=== PATIENT | male | born 1945 | race Caucasian/White ===

== ENCOUNTER 2016-09-09 17:05 | Inpatient (IN) | payer MEDICARE, MEDICAID ==
[2016-09-09 17:50] LABS: CHLORIDE,CL 103 mmol/L (98-115); SODIUM,NA 143 mmol/L (136-145)
[2016-09-09] MEDS ORDERED: Albuterol/Ipratropium 3.0-0.5 MG/3 ML Neb Soln NEB SCH (18:00)
--- NOTE | 2016-09-09 18:08 | EDM.PDOC ---
ED HISTORY OF PRESENT ILLNESS - General Chief Complaint: Respiratory Problem Stated Complaint: ?ASPIRATION PNEUMONIA Time Seen by Provider: 09/09/16 17:30 Source of Information: Reports: EMS notes reviewed, long-term records History Limitations: Reports: Altered mental status, Physical impairment - History of Present Illness INITIAL COMMENTS - FREE TEXT/NARRATIVE: 70-year-old male shelter resident history of prior stroke and current feeding tube is brought into the emergency room by EMS for evaluation possible aspiration pneumonia. Patient was started on Levaquin 500 mg daily and Flagyl 250 mg 3 times a day beginning yesterday he had an emesis early in the a.m. this morning been running low-grade fevers approximately 100 he has become more lethargic and weak. He is unable to provide any significant history all his past medical history is reviewed from his nursing notes and chart. His CBC did show elevated white count with a right shift. Timing/Duration: Reports: Day(s): Severity: moderate Location, General: Reports: chest Associated Symptoms (General): Reports: shortness of breath, weakness, other ( emesis this a.m.) Treatments [employer]: Reports: Acetaminophen, Other (see below) (levaquin/flagyl) - Related Data Allergies/ADRs: Allergies Allergy/AdvReac Type Severity Reaction Status Date / Time tizanidine Allergy Agitation Verified 09/09/16 17:39 Home Meds: Home Meds Albuterol/Ipratropium [DuoNeb 3.0-0.5 MG/3 ML] 1 unit INH Q4H PRN 08/06/13 [ History] Aspirin [Francis Chewable Aspirin] 81 mg GTUBE 0800 08/06/13 [History] Baclofen 20 mg GTUBE 0800,1400,2000 08/06/13 [History] Cholecalciferol (Vitamin D3) [Vitamin D3] 1,000 unit GTUBE DAILY@0800 08/06/13 [ History] Glycopyrrolate [Robinul] 2 mg GTUBE 0000,0500,1300,1800 08/06/13 [History] Guar Gum [Benefiber] 4 gm GTUBE 0800,1800 08/06/13 [History] Polyethylene Glycol 3350 [MiraLAX] 17 gm GTUBE Q48H 08/06/13 [History] Sertraline [Zoloft] 100 mg GTUBE DAILY@1800 08/06/13 [History] Albuterol/Ipratropium [DuoNeb 3.0-0.5 MG/3 ML] 1 unit INH 0900,1400,1999 [History] traMADol HCl [Ultram] 50 mg GTUBE TID PRN 11/14/14 [History] Sennosides [Senna-Gen] 8.6 mg GTUBE 0800,1800 11/17/14 [History] Lansoprazole 3mg/Ml 30 mg GTUBE 0800,1800 09/11/15 [History] Gabapentin 250 mg PO 0500,1300,209905/15/16 [History] Nystatin 1 applic TOP 0900,209905/15/16 [History] Nystatin 1 applic TOP QID PRN 05/15/16 [History] guaiFENesin/Codeine Phosphate [Cheratussin AC Syrup] 5 ml PEGTUBE Q4H PRN [History] traMADol HCl [Tramadol HCl] 50 mg PEGTUBE 0600,1800 PRN 05/15/16 [History] Acetaminophen [Mapap] 500 mg GTUBE 0800,199905/16/16 [History] guaiFENesin [Robitussin] 200 mg PEGTUBE Q4H PRN 05/16/16 [History] Hydrocodone/Acetaminophen [Hydrocodon-Acetaminophen 5-325] 1 each PEGTUBE BEDTIME 09/09/16 [History] Levofloxacin [Levaquin] 500 mg PO Q24H 09/09/16 [History] Metoprolol Tartrate 25 mg PEGTUBE 0900,209909/09/16 [History] Ondansetron [IJP: Ondansetron ODT] 4 mg PEGTUBE .EVERY 6 HOURS 09/09/16 [History ] metroNIDAZOLE [Metronidazole] 250 mg PEGTUBE 0800,1400,199909/09/16 [History] Past Medical History Other HEENT History: Dysphagia Cardiovascular History: Reports: Other (see below) Other Cardiovascular History: Hemorrhagic stroke 7 yr ago Respiratory History: Reports: Pneumonia, recurrent Other Respiratory History: intubated and trached for pneumonia 3 yrs ago, H/O MRSA sputum Gastrointestinal History: Reports: Other (see below) Other Gastrointestinal History: PEG TUBE Musculoskeletal History: Reports: Other (see below) Other Musculoskeletal History: chronic muscle spasms, left hemiplegia with contractures. Neurological History: Reports: CVA, Other (see below) Other Neuro History: chronic pain syndrome Psychiatric History: Reports: Depression Oncologic (Cancer) History: Reports: Other (see below) Other Oncologic History: adrenal adenoma Dermatologic History: Reports: Other (see below) Other Dermatologic History: scattered red rashy areas - Past Surgical History GI Surgical History: Reports: Other (see below) Other GI Surgeries/Procedures: PEG TUBE Musculoskeletal Surgical History: Reports: Shoulder surgery, Other (see below) Other Musculoskeletal Surgeries/Procedures:: hardware present to left shoulder Social & Family History - Family History Family Medical History: Noncontributory - Tobacco Use Smoking Status *Q: Unknown Ever Smoked Years of Tobacco use: 19 Packs/Tins Daily: 2 Used Tobacco, but Quit: Yes Month Tobacco Last Used: Unknown Second Hand Smoke Exposure: No - Alcohol Use Days Per Week of Alcohol Use: 0 Number of Drinks Per Day: 5 Total Drinks Per Week: 0 - Recreational Drug Use Recreational Drug Use: No ED ROS GENERAL - Review of Systems Review Of Systems: Unable To Obtain ED EXAM, GENERAL - Physical Exam Exam: See Below Exam Limited By: Physical impairment General Appearance: no apparent distress, lethargic, thin Eye Exam: bilateral eye: EOMI, PERRL Ears: other (cerumen impaction bilateral ears) Nose: normal inspection Throat/Mouth: No airway compromise Head: atraumatic Neck: normal inspection, supple Respiratory/Chest: chest non-tender, decreased breath sounds, crackles. No: respiratory distress, rhonchi, wheezing, retractions Cardiovascular: normal peripheral pulses, regular rate, rhythm Peripheral Pulses: 2+: carotid (L), carotid (R), radial (L), radial (R), dorsalis pedis (L), dorsalis pedis (R) GI/Abdominal: soft, non tender, no distention Back Exam: normal inspection Extremities: normal inspection, no pedal edema, normal capillary refill Neurological: sensory/motor deficit (history of prior stroke) Psychiatric: depressed mood, flat affect Skin Exam: Warm, No rash. No: Diaphoretic Course - Vital Signs Last Recorded V/S: Last Vital Signs Temp 99.6 F 09/09/16 17:29 Pulse 98 09/09/16 17:29 Resp 36 H 09/09/16 17:29 BP 141/79 H 09/09/16 17:29 Pulse Ox 99 09/09/16 17:29 - Orders/Labs/Meds Orders: Active Orders 24 hr Category Date Time Status Admission Status [Patient Status] [ADT] Routine ADT 09/09/16 17:59 Ordered Chest 1V Frontal [CR] Stat Exams 09/09/16 17:27 Taken Levofloxacin/Dextrose 5%-Water [Levaquin in D5W 500 MG/ Med 09/09/16 18:30 Active 100 ML] 500 mg Premix Bag 1 bag IV Q24H Medication Orders Levofloxacin/Dextrose 500 mg/ (Premix) 100 mls @ 100 mls/hr IV Q24H BEN Labs: Laboratory Tests 09/09/16 09/09/16 Range/Units 17:25 17:25 WBC 14.4 H (5.0-10.0) 10^3/uL RBC 4.28 L (4.50-6.00) 10^6/uL Hgb 13.1 (13.0-17.0) g/dL Hct 38.8 L (40.0-52.0) % MCV 90.5 (82.0-92.0) fL MCH 30.6 (27.0-31.0) pg MCHC 33.8 (32.0-36.0) g/dL RDW 14.2 (11.5-14.5) % Plt Count 196 (150-300) 10^3/uL MPV 9.2 (7.4-10.4) fL Neut % (Auto) 86.4 H (50.0-70.0) % Lymph % (Auto) 7.3 L (20.0-40.0) % Mills % (Auto) 5.7 (2.0-8.0) % Eos % (Auto) 0.1 L (1.0-3.0) % Baso % (Auto) 0.5 (0.0-1.0) % Neut # (Auto) 12.4 H (2.5-7.0) 10^3/uL Lymph # (Auto) 1.1 (1.0-4.0) 10^3/uL Mills # (Auto) 0.8 (0.1-0.8) 10^3/uL Eos # (Auto) 0.0 L (0.1-0.3) 10^3/uL Baso # (Auto) 0.1 (0.0-0.1) 10^3/uL Sodium 143 (136-145) mmol/L Potassium 4.3 (3.3-5.3) mmol/L Chloride 103 (98-115) mmol/L Carbon Dioxide 33.6 H (21.0-32.0) mmol/L BUN 23 (6-25) mg/dL Creatinine 0.69 (0.51-1.17) mg/dL Est Cr Clr Drug Dosing 101.04 mL/min Estimated GFR (MDRD) > 60 mL/min Glucose 139 H (70-110) mg/dL Calcium 9.0 (8.7-10.3) mg/dL Meds: Medications Generic Name Dose Route Start Last Admin Trade Name Freq PRN Reason Stop Dose Admin Levofloxacin/Dextrose 500 mg/ 100 mls @ 100 mls/hr 09/09/16 18:30 Premix IV Q24H BEN - Radiology Interpretation Free Text/Narrative:: Portable chest x-ray Findings; bibasal or significant infiltrates are seen. There's questionable right hilar mass. The cardiomediastinal contour is prominent but stable Impression By basilar pneumonia question of a right hilar mass. Departure - Departure Time of Disposition: 18:13 Disposition: Admitted As Inpatient 67 Condition: poor Clinical Impression: Neutrophilic leukocytosis Aspiration pneumonia Qualifiers: Aspiration pneumonia type: due to regurgitated food Laterality: unspecified laterality Lung location: unspecified part of lung Qualified Code(s): J69.0 - Pneumonitis due to inhalation of food and vomit Referrals: Nneka Stanford MD [Primary Care Provider] - Forms: ED Department Discharge - My Orders Last 24 Hours: My Active Orders 09/09/16 17:27 Chest 1V Frontal [CR] Stat 09/09/16 17:59 Admission Status [Patient Status] [ADT] Routine 09/09/16 18:30 Levofloxacin/Dextrose 5%-Water [Levaquin in D5W 500 MG/100 ML] 500 mg Premix Bag 1 bag IV Q24H - Assessment/Plan Last 24 Hours: My Active Orders 09/09/16 17:27 Chest 1V Frontal [CR] Stat 09/09/16 17:59 Admission Status [Patient Status] [ADT] Routine 09/09/16 18:30 Levofloxacin/Dextrose 5%-Water [Levaquin in D5W 500 MG/100 ML] 500 mg Premix Bag 1 bag IV Q24H Assessment:: Leukocytosis neutrophilic Plan: Neck the patient for aspiration pneumonia protocol begin IV antibiotics 500 Levaquin. Kyle provider will set up management and care for this patient on inpatient admission.
[2016-09-09] MEDS ORDERED: Levofloxacin/Dextrose 5%-Water 500 MG in Premix Bag 1 BAG IV SCH (18:30)
--- NOTE | 2016-09-09 19:29 | PCM.HP ---
H&P History of Present Illness - General Date of Service: 09/09/16 Admit Problem/Dx: Admission Diagnosis/Problem Admission Diagnosis/Problem Aspiration pneumonia Source of Information: EMS, Family, custodial records, Old records, Provider , RN - Related Data Allergies/Adverse Reactions: Allergies Allergy/AdvReac Type Severity Reaction Status Date / Time tizanidine Allergy Agitation Verified 09/09/16 17:39 Home Medications: Home Meds Albuterol/Ipratropium [DuoNeb 3.0-0.5 MG/3 ML] 1 unit INH Q4H PRN 08/06/13 [ History] Aspirin [Francis Chewable Aspirin] 81 mg GTUBE 0800 08/06/13 [History] Baclofen 20 mg GTUBE 0800,1400,199908/06/13 [History] Cholecalciferol (Vitamin D3) [Vitamin D3] 1,000 unit GTUBE DAILY@0800 08/06/13 [ History] Glycopyrrolate [Robinul] 2 mg GTUBE 0000,0500,1300,1800 08/06/13 [History] Guar Gum [Benefiber] 4 gm GTUBE 0800,1800 08/06/13 [History] Polyethylene Glycol 3350 [MiraLAX] 17 gm GTUBE Q48H 08/06/13 [History] Sertraline [Zoloft] 100 mg GTUBE DAILY@1800 08/06/13 [History] Albuterol/Ipratropium [DuoNeb 3.0-0.5 MG/3 ML] 1 unit INH 0900,1400,1999 [History] traMADol HCl [Ultram] 50 mg GTUBE TID PRN 11/14/14 [History] Sennosides [Senna-Gen] 8.6 mg GTUBE 0800,1800 11/17/14 [History] Lansoprazole 3mg/Ml 30 mg GTUBE 0800,1800 09/11/15 [History] Gabapentin 250 mg PO 0500,1300,2100 05/15/16 [History] Nystatin 1 applic TOP 0900,2100 05/15/16 [History] Nystatin 1 applic TOP QID PRN 05/15/16 [History] guaiFENesin/Codeine Phosphate [Cheratussin AC Syrup] 5 ml PEGTUBE Q4H PRN [History] traMADol HCl [Tramadol HCl] 50 mg PEGTUBE 0600,1800 PRN 05/15/16 [History] Acetaminophen [Mapap] 500 mg GTUBE 0800,199905/16/16 [History] guaiFENesin [Robitussin] 200 mg PEGTUBE Q4H PRN 05/16/16 [History] Hydrocodone/Acetaminophen [Hydrocodon-Acetaminophen 5-325] 1 each PEGTUBE BEDTIME 09/09/16 [History] Levofloxacin [Levaquin] 500 mg PO Q24H 09/09/16 [History] Metoprolol Tartrate 25 mg PEGTUBE 0900,2100 09/09/16 [History] Ondansetron [IJP: Ondansetron ODT] 4 mg PEGTUBE .EVERY 6 HOURS 09/09/16 [History ] metroNIDAZOLE [Metronidazole] 250 mg PEGTUBE 0800,1400,199909/09/16 [History] Past Medical History Other HEENT History: Dysphagia Cardiovascular History: Reports: Other (see below) Other Cardiovascular History: Hemorrhagic stroke 7 yr ago Respiratory History: Reports: Pneumonia, recurrent Other Respiratory History: intubated and trached for pneumonia 3 yrs ago, H/O MRSA sputum Gastrointestinal History: Reports: Other (see below) Other Gastrointestinal History: PEG TUBE Musculoskeletal History: Reports: Other (see below) Other Musculoskeletal History: chronic muscle spasms, left hemiplegia with contractures. Neurological History: Reports: CVA, Other (see below) Other Neuro History: chronic pain syndrome Psychiatric History: Reports: Depression Oncologic (Cancer) History: Reports: Other (see below) Other Oncologic History: adrenal adenoma Dermatologic History: Reports: Other (see below) Other Dermatologic History: scattered red rashy areas - Past Surgical History GI Surgical History: Reports: Other (see below) Other GI Surgeries/Procedures: PEG TUBE Musculoskeletal Surgical History: Reports: Shoulder surgery, Other (see below) Other Musculoskeletal Surgeries/Procedures:: hardware present to left shoulder Social & Family History - Family History Family Medical History: Noncontributory - Tobacco Use Smoking Status *Q: Unknown Ever Smoked Years of Tobacco use: 19 Packs/Tins Daily: 2 Used Tobacco, but Quit: Yes Month Tobacco Last Used: Unknown Second Hand Smoke Exposure: No - Alcohol Use Days Per Week of Alcohol Use: 0 Number of Drinks Per Day: 5 Total Drinks Per Week: 0 - Recreational Drug Use Recreational Drug Use: No Exam - Vital Signs Vital Signs: Last Vital Signs Temp 99.6 F 09/09/16 17:29 Pulse 98 09/09/16 17:29 Resp 36 H 09/09/16 17:29 BP 141/79 H 09/09/16 17:29 Pulse Ox 99 09/09/16 17:29 Weight: 187 lb 6.4 oz - Patient Data Result Diagrams: 09/09/16 17:25 09/09/16 17:25 *Q Meaningful Use (ADM) - VTE *Q VTE Criteria *Q: - Stroke *Q Stroke Criteria *Q: - AMI *Q AMI Criteria *Q: Orders Last 24hrs: Active Orders 24 hr Category Date Time Status Bedrest [RC] ASDIRECTED Care 09/09/16 19:18 Active Intake and Output [RC] 1400,2200,0600 Care 09/09/16 19:19 Active RT Aerosol Therapy [RC] ASDIRECTED Care 09/09/16 19:16 Active Vital Signs [RC] Q2H Care 09/09/16 19:26 Ordered CBC WITH AUTO DIFF [HEME] AM Lab 09/10/16 05:11 Ordered COMPREHENSIVE METABOLIC PN,CMP [CHEM] AM Lab 09/10/16 05:11 Ordered CULTURE BLOOD [BC] Stat Lab 09/09/16 19:17 Ordered CULTURE BLOOD [BC] Stat Lab 09/09/16 19:17 Ordered Albuterol/Ipratropium [DuoNeb 3.0-0.5 MG/3 ML] Med 09/09/16 18:00 Ordered 3 ml NEB Q6HRRT Clindamycin Phosphate [Cleocin] 600 mg Med 09/09/16 19:30 Ordered Dextrose 5% in Water 50 ml IV Q8H Levofloxacin/Dextrose 5%-Water [Levaquin in D5W 500 MG/ Med 09/09/16 18:30 Active 100 ML] 500 mg Premix Bag 1 bag IV Q24H Sodium Chloride 0.9% [Normal Saline] 1,000 ml Med 09/09/16 19:30 Ordered IV ASDIRECTED Vancomycin 1.5 gm Med 09/09/16 19:13 Ordered Sodium Chloride 0.9% [Normal Saline] 250 ml IV ONETIME Vancomycin Pharmacy to Dose [Pharmacy to Dose - Med 09/09/16 19:15 Ordered Vancomycin] 1 dose .XX ASDIRECTED Blood Culture x2 Reflex Set [OM.PC] Stat Oth 09/09/16 19:17 Ordered Code Status [Resuscitation Status] Routine Resus Stat 09/09/16 19:25 Ordered Medication Orders Albuterol/Ipratropium (Duoneb 3.0-0.5 Mg/3 Ml) 3 ml NEB Q6HRRT BEN Levofloxacin/Dextrose 500 mg/ (Premix) 100 mls @ 100 mls/hr IV Q24H [facility] Vancomycin HCl 1.5 gm/ Sodium (Chloride) 250 mls @ 167 mls/hr IV ONETIME ONE Stop: 09/09/16 20:42 Clindamycin Phosphate 600 mg/ (Dextrose/Water) 54 mls @ 150 mls/hr IV Q8H B[facility] Sodium Chloride (Normal Saline) 1,000 mls @ 100 mls/hr IV ASDIRECTED BEN Vancomycin HCl (Pharmacy To Dose - Vancomycin) 1 dose .XX ASDIRECTED BEN
[2016-09-09] MEDS ORDERED: Sodium Chloride 0.9% 1,000 ML IV SCH (19:30)
[2016-09-09] MEDS ORDERED: Clindamycin Phosphate 600 MG in Dextrose 5% in Water 50 ML IV SCH ×2 (20:00)
[2016-09-09 20:22] VITALS: BP 141/89
[2016-09-09] MEDS ORDERED: Piperacillin/Tazobactam/Dext 3.375 GM in Premix Bag 1 BAG IV ONE (20:32)
[2016-09-09] MEDS ORDERED: Succinylcholine 200 MG/10 ML MDV IV ONE (20:35)
[2016-09-09] MEDS ORDERED: Rocuronium 50 MG/5 ML Vial IVPUSH ONE (20:35)
[2016-09-09] MEDS ORDERED: Etomidate 2 MG/ML 10 ML SDV IVPUSH ONE (20:35)
[2016-09-09] MEDS ORDERED: Midazolam 1 MG/ML 2 ML SDV IVPUSH ONE (20:35)
[2016-09-09 20:43] LABS: BASE EXCESS ARTERIAL 7 mmol/L (-2-3); BICARBONATE,ARTERIAL 31.3 mmol/L (22-26); O2 DELIVERY DEVICE NON REBR MASK; O2 SATURATION ARTERIAL 97 % (95-98); PCO2 ARTERIAL 47 mmHG (35-45); PO2 ARTERIAL 94 mmHG (80-105)
[2016-09-09] MEDS ORDERED: Etomidate 2 MG/ML 10 ML SDV ONE (20:48)
--- NOTE | 2016-09-09 21:42 | PCM.DCSUM1 ---
Discharge Summary - Hospital Course Brief History: This is a 70 year old male who presented to the ER from the senior living after having an emesis the morning of admission. He subsequently developed fevers, tachycardia, and tachypnea. Workup in the ER included WBC 14.4 with left shift, BMP unremarkable except CO2 of 33.6. Chest x-ray report revealed bibasilar pneumonia and question of right hilar mass. The patient was admitted to the medical floor for further treatment and monitoring. Prior to his ER visit, the patient did receive levaquin and metronidazole through his PEG -tube. The patient has a history of aspiration pneumonia and was hospitalized for this with subsequent septic shock in May. - Discharge Data Discharge Date: 09/09/16 Discharge Disposition: DC/Tfer to Acute Hospital 02 Condition: Poor - Patient Summary/Data Complications: Impending respiratory failure with possible septic shock Consults: Hospitalist, Dr. Arambula Labs Pending at D/C: Blood cultures x 2 - Discharge Plan Home Medications: Home Meds Albuterol/Ipratropium [DuoNeb 3.0-0.5 MG/3 ML] 1 unit INH Q4H PRN 08/06/13 [ History] Aspirin [Francis Chewable Aspirin] 81 mg GTUBE 0800 08/06/13 [History] Baclofen 20 mg GTUBE 0800,1400,199908/06/13 [History] Cholecalciferol (Vitamin D3) [Vitamin D3] 1,000 unit GTUBE DAILY@0800 08/06/13 [ History] Glycopyrrolate [Robinul] 2 mg GTUBE 0000,0500,1300,1800 08/06/13 [History] Guar Gum [Benefiber] 4 gm GTUBE 0800,1800 08/06/13 [History] Polyethylene Glycol 3350 [MiraLAX] 17 gm GTUBE Q48H 08/06/13 [History] Sertraline [Zoloft] 100 mg GTUBE DAILY@1800 08/06/13 [History] Albuterol/Ipratropium [DuoNeb 3.0-0.5 MG/3 ML] 1 unit INH 0900,1400,1999 [History] traMADol HCl [Ultram] 50 mg GTUBE TID PRN 11/14/14 [History] Sennosides [Senna-Gen] 8.6 mg GTUBE 0800,1800 11/17/14 [History] Lansoprazole 3mg/Ml 30 mg GTUBE 0800,1800 09/11/15 [History] Gabapentin 250 mg PO 0500,1300,209905/15/16 [History] Nystatin 1 applic TOP 0900,209905/15/16 [History] Nystatin 1 applic TOP QID PRN 05/15/16 [History] guaiFENesin/Codeine Phosphate [Cheratussin AC Syrup] 5 ml PEGTUBE Q4H PRN [History] traMADol HCl [Tramadol HCl] 50 mg PEGTUBE 0600,1800 PRN 05/15/16 [History] Acetaminophen [Mapap] 500 mg GTUBE 0800,199905/16/16 [History] guaiFENesin [Robitussin] 200 mg PEGTUBE Q4H PRN 05/16/16 [History] Hydrocodone/Acetaminophen [Hydrocodon-Acetaminophen 5-325] 1 each PEGTUBE BEDTIME 09/09/16 [History] Levofloxacin [Levaquin] 500 mg PO Q24H 09/09/16 [History] Metoprolol Tartrate 25 mg PEGTUBE 0900,209909/09/16 [History] Ondansetron [IJP: Ondansetron ODT] 4 mg PEGTUBE .EVERY 6 HOURS 09/09/16 [History ] metroNIDAZOLE [Metronidazole] 250 mg PEGTUBE 0800,1400,199909/09/16 [History] Forms: ED Department Discharge Referrals: Nneka Stanford MD [Primary Care Provider] - - Discharge Summary/Plan Comment DC Time >30 min.: Yes [facility]) Discharge Summary/Plan Comment: Date of admission: 09/09/16 Date of discharge: 09/09/16 Admitting diagnosis: Primary: Bibasilar aspiration pneumonia Secondary: History of septic shock, History of aspiration pneumonia, S/P stroke, Dysphagia, G-tube in place, Depression, Chronic pain syndrome, Hyperlipidemia, Esophageal reflux, Osteoarthritis, Muscle spasms, Weakness, Chronic Bronchitis, Chronic hepatitis C, Systolic murmur, AAA, Paroxysmal atrial fibrillation, Constipation, Expressive aphasia Final Diagnosis: Primary: Bibasilar aspiration pneumonia, Acute hypoxic respiratory failure with impending septic shock requiring intubation Secondary: History of septic shock, History of aspiration pneumonia, S/P stroke, Dysphagia, G-tube in place, Depression, Chronic pain syndrome, Hyperlipidemia, Esophageal reflux, Osteoarthritis, Muscle spasms, Weakness, Chronic Bronchitis, Chronic hepatitis C, Systolic murmur, AAA, Paroxysmal atrial fibrillation, Constipation, Expressive aphasia Procedures performed: Endotracheal intubation performed by Maricruz Guzmán CRNA; NG tube placed Hospital Course: The patient had a short hospitalization prior to being transferred to a higher level of care due to complications. Patient's family was called upon admission to the hospital and code status was discussed in detail. Daughter requested patient continue as full code. The patient's respiratory status decompensated quickly after arriving to the floor. He was on a 10 liter non-rebreather mask with saturations of 95% and respirations of 40. His temperature was as high as 102. The patient did not become hypotensive, however he was tachycardic in the 90-100s. The patient was becoming more lethargic and unable to protect his airway. The patient was initiated on IVFs of normal saline at 100 mL/hr. He was given IV levaquin, zosyn, and vancomycin. He was given a DuoNeb. Lactic acid was normal at 1.3. Blood cultures were pending. ABGs revealed pH 7.43, CO2 47, CO3 31.3, Total CO2 33, and O2 94. Call was placed to [facility] for transfer. Discussion was held with Dr. Arambula who advised patient be intubated before transfer. Maricruz Guzmán CRNA performed rapid sequence endotracheal intubation without incident. Oral cavity was suctioned as well as ET tube with copious amounts of mucus returned. NG tube was placed and approximately 500 mL or more of stomach secretions were removed. New medications on discharge: Zosyn 3.375 gm IV x 1 and Vancomycin 1.5 gm IV x 1 given en route New changes to home medications on discharge: None Regular home medications on discharge: -Metoprolol tartrate 12.5 mg via PEG tube BID -DuoNeb TID -Zoloft 200 mg via PEG daily -Hydrocodone-APAP 5/325 mg via PEG daily -Tylenol liquid 15 mL (500 mg) via PEG BID -Aspirin 81 mg via PEG daily -Vitamin D3 1000 units via PEG daily -Nutrisource Fiber 4 gm via PEG BID -Nystatin topical powder BID to affected area -Lansoprazole 10 mL (30 mg) via PEG BID -Senna 1 tab via PEG BID -Baclofen 20 mg via PEG TID -Glycopopyrrolate 1 mg via PED QID -Miralax 17 gm via PEG every other day -Gabapentin 4 mL (200 mg) po TID -Tramadol 50 mg via PEG BID -Nystatin powder QID PRN to affected area -Tramadol 50 mg via PEG TID PRN -Guafenesin 10 mL (200 mg) via PEG every 4 hours PRN -Cheratussin AC 10 mL via PEG every 4 hours PRN -Tylenol 15 mL (500 mg) via PEG QID PRN -Zofran 4 mg via PEG every 6 hours PRN -DuoNeb TID PRN Condition, Treatment, and Final Disposition: The patient was in serious, but stable condition at the time of discharge. He was transferred via ALS ambulance to [facility] to the ICU. Daughter notified and in agreement with the plan of care. - General Info Date of Service: 09/09/16 Subjective Update: Limited ROS due to patient's expressive aphasia.Will open eyes and follow simple commands. Difficult to understand patient. - Patient Data Vitals - Most Recent: Last Vital Signs Temp 100.4 F 09/09/16 20:21 Pulse 100 09/09/16 20:35 Resp 40 H 09/09/16 20:21 BP 141/89 H 09/09/16 20:21 Pulse Ox 98 09/09/16 20:35 Weight - Most Recent: 181 lb 11.2 oz Lab Results - Last 24 hrs: Laboratory Results - last 24 hr 09/09/16 09/09/16 Range/Units 19:50 20:30 ABG pH 7.43 (7.35-7.45) ABG pCO2 47 H (35-45) mmHG ABG pO2 94 (80-105) mmHG ABG HCO3 31.3 H (22-26) mmol/L ABG Total CO2 33 H (23-27) mmol/L ABG O2 Saturation 97 (95-98) % ABG Base Excess 7 H (-2-3) mmol/L O2 Delivery Device Non rebr mask Lactic Acid 1.3 (0.4-2.0) mmol/L Med Orders - Current: Current Medications Albuterol/Ipratropium (Duoneb 3.0-0.5 Mg/3 Ml) 3 ml NEB Q6HRRT [facility] Last Admin: 09/09/16 20:25 Dose: 3 ml Levofloxacin/Dextrose 500 mg/ (Premix) 100 mls @ 100 mls/hr IV Q24H [facility] Last Admin: 09/09/16 20:19 Dose: 100 mls/hr Clindamycin Phosphate 600 mg/ (Dextrose/Water) 54 mls @ 150 mls/hr IV Q8H [facility] Sodium Chloride (Normal Saline) 1,000 mls @ 100 mls/hr IV ASDIRECTED [facility] Last Admin: 09/09/16 19:50 Dose: 100 mls/hr Vancomycin HCl (Pharmacy To Dose - Vancomycin) 1 dose .XX ASDIRECTED [facility] Discontinued Medications Vancomycin HCl 1.5 gm/ Sodium (Chloride) 250 mls @ 167 mls/hr IV ONETIME ONE Stop: 09/09/16 20:42 Piperacillin/Tazobactam/ (Dextrose 3.375 gm/ Premix) 50 mls @ 100 mls/hr IV ONETIME ONE Stop: 09/09/16 21:01 - Exam Quality Assessment: Reports: supplemental oxygen (10 liter nonrebreather) General: Reports: alert, severe distress, lethargic. Denies: oriented, obtunded HEENT: Reports: Pupils equal, Pupils reactive. Denies: Mucous membr. moist/ pink (dry and pale) Neck: Reports: supple, trachea midline. Denies: lymphadenopathy Lungs: Reports: Crackles (coarse crackles throughout lung avelar), Other ( intercostal retractions noted). Denies: Wheezing Cardiovascular: Reports: Regular Rhythm, Tachycardia, Murmurs Abdomen: Reports: bowel sounds present, soft, no tenderness, no distension, other (PEG tube in place) Extremities: Reports: no edema Skin: Reports: warm, dry, other (diaphoretic, warm skin) Neurological: Denies: normal speech Psy/Mental Status: Reports: anxious *Q Meaningful Use (DIS) - VTE *Q VTE Criteria *Q: - Stroke *Q Stroke Criteria *Q: - AMI *Q AMI Criteria *Q:
[2016-09-10] MEDS ORDERED: Midazolam 1 MG/ML 2 ML SDV ONE (02:23)
== END 2016-09-09 21:43 | DRG 871 ==
LOC: KA.ED 17:05 → KA.MS 17:59
PROVIDERS: ADMIT Physician Assistant; ATTEND Nurse Practitioner Family
PROC: 0BH17EZ Insertion of Endotracheal Airway into Trachea, Via Natural or Artificial Opening (ICD-10-PCS; principal; 2016-09-09)
PROC: 0D9670Z Drainage of Stomach with Drainage Device, Via Natural or Artificial Opening (ICD-10-PCS; 2016-09-09)
DX: A41.9 Sepsis, unspecified organism (principal); D72.829 Elevated white blood cell count, unspecified; R65.21 Severe sepsis with septic shock; J69.0 Pneumonitis due to inhalation of food and vomit; Z86.73 Personal history of transient ischemic attack (TIA), and cerebral infarction without residual deficits; J96.01 Acute respiratory failure with hypoxia; I69.991 Dysphagia following unspecified cerebrovascular disease; R13.10 Dysphagia, unspecified; F32.9 Major depressive disorder, single episode, unspecified; G89.4 Chronic pain syndrome; E78.5 Hyperlipidemia, unspecified; K21.9 Gastro-esophageal reflux disease without esophagitis; M19.90 Unspecified osteoarthritis, unspecified site; M62.838 Other muscle spasm; R53.1 Weakness; B18.2 Chronic viral hepatitis C; R01.1 Cardiac murmur, unspecified; I71.4 Abdominal aortic aneurysm, without rupture; I48.91 Unspecified atrial fibrillation; K59.00 Constipation, unspecified; F80.1 Expressive language disorder; Z79.899 Other long term (current) drug therapy
CPT/HCPCS: 31500; 36415; 36600; 71010; 80048; 82803; 83605; 85025; 87040; 99285; J0330; J1956; J2250; J2543; J3370; J7030; J7050; J7060; S0077

== ENCOUNTER 2016-10-01 20:19 | Emergency (ER) | payer MEDICARE, MEDICAID ==
[2016-10-01] MEDS ORDERED: Sodium Chloride 0.9% 5 ML Syringe FLUSH PRN (20:27)
--- NOTE | 2016-10-01 20:39 | EDM.PDOC ---
ED HPI GENERAL MEDICAL PROBLEM - General Chief Complaint: Respiratory Problem Stated Complaint: RESPIRATORY DISTRESS Time Seen by Provider: 10/01/16 20:27 Source of Information: Reports: EMS, EMS Notes Reviewed, [facility]itentiary Records History Limitations: Reports: No Limitations - History of Present Illness INITIAL COMMENTS - FREE TEXT/NARRATIVE: PT PRESENTS VIA EMS FROM NURSING FACILITY WITH C/O WORSENING SOB AND INCREASED RR. DENY FEVER, CP, PEDAL EDEMA. PT HAD SIMILAR EPISODE HERE 3 WEEKS AGO AND REQUIRED INTUBATION AND TRANSFER TO [facility]. Onset: Gradual Duration: Chronic, Getting Worse Associated Symptoms: Reports: Shortness of Breath - Related Data Allergies Allergy/AdvReac Type Severity Reaction Status Date / Time tizanidine Allergy Agitation Verified 10/01/16 20:34 Home Meds: Home Meds Albuterol/Ipratropium [DuoNeb 3.0-0.5 MG/3 ML] 1 unit INH Q4H PRN 08/06/13 [ History] Aspirin [Francis Chewable Aspirin] 81 mg GTUBE 0800 08/06/13 [History] Baclofen 20 mg GTUBE 0800,1400,199908/06/13 [History] Cholecalciferol (Vitamin D3) [Vitamin D3] 1,000 unit GTUBE DAILY@0800 08/06/13 [ History] Glycopyrrolate [Robinul] 2 mg GTUBE 0000,0500,1300,1800 08/06/13 [History] Guar Gum [Benefiber] 4 gm GTUBE 0800,1800 08/06/13 [History] Polyethylene Glycol 3350 [MiraLAX] 17 gm GTUBE Q48H 08/06/13 [History] Sertraline [Zoloft] 100 mg GTUBE DAILY@1800 08/06/13 [History] Albuterol/Ipratropium [DuoNeb 3.0-0.5 MG/3 ML] 1 unit INH 0900,1400,1999 [History] traMADol HCl [Ultram] 50 mg GTUBE TID PRN 11/14/14 [History] Sennosides [Senna-Gen] 8.6 mg GTUBE 0800,1800 11/17/14 [History] Lansoprazole 3mg/Ml 30 mg GTUBE 0800,1800 09/11/15 [History] Gabapentin 250 mg PO 0500,1300,2100 05/15/16 [History] Nystatin 1 applic TOP 0900,2100 05/15/16 [History] Nystatin 1 applic TOP QID PRN 05/15/16 [History] guaiFENesin/Codeine Phosphate [Cheratussin AC Syrup] 5 ml PEGTUBE Q4H PRN [History] traMADol HCl [Tramadol HCl] 50 mg PEGTUBE 0600,1800 PRN 05/15/16 [History] Acetaminophen [Mapap] 500 mg GTUBE 0800,199905/16/16 [History] guaiFENesin [Robitussin] 200 mg PEGTUBE Q4H PRN 05/16/16 [History] Hydrocodone/Acetaminophen [Hydrocodon-Acetaminophen 5-325] 1 each PEGTUBE BEDTIME 09/09/16 [History] Levofloxacin [Levaquin] 500 mg PO Q24H 09/09/16 [History] Metoprolol Tartrate 25 mg PEGTUBE 0900,209909/09/16 [History] Ondansetron [IJP: Ondansetron ODT] 4 mg PEGTUBE .EVERY 6 HOURS 09/09/16 [History ] metroNIDAZOLE [Metronidazole] 250 mg PEGTUBE 0800,1400,199909/09/16 [History] Past Medical History Other HEENT History: Dysphagia Cardiovascular History: Reports: Other (See Below) Other Cardiovascular History: Hemorrhagic stroke 7 yr ago Respiratory History: Reports: Pneumonia, Recurrent Other Respiratory History: intubated and trached for pneumonia 3 yrs ago, H/O MRSA sputum Gastrointestinal History: Reports: Other (See Below) Other Gastrointestinal History: PEG TUBE Musculoskeletal History: Reports: Other (See Below) Other Musculoskeletal History: chronic muscle spasms, left hemiplegia with contractures. Neurological History: Reports: CVA, Other (See Below) Other Neuro History: chronic pain syndrome Psychiatric History: Reports: Depression Oncologic (Cancer) History: Reports: Other (See Below) Other Oncologic History: adrenal adenoma Dermatologic History: Reports: Other (See Below) Other Dermatologic History: scattered red rashy areas - Past Surgical History GI Surgical History: Reports: Other (See Below) Musculoskeletal Surgical History: Reports: Shoulder Surgery, Other (See Below) Social & Family History - Family History Family Medical History: Noncontributory - Tobacco Use Smoking Status *Q: Former Smoker Years of Tobacco use: 19 Packs/Tins Daily: 2 Used Tobacco, but Quit: Yes Month Tobacco Last Used: Unknown Second Hand Smoke Exposure: No - Alcohol Use Days Per Week of Alcohol Use: 0 Number of Drinks Per Day: 5 Total Drinks Per Week: 0 - Recreational Drug Use Recreational Drug Use: No ED ROS GENERAL - Review of Systems Review Of Systems: ROS reveals no pertinent complaints other than HPI. Constitutional: Reports: No Symptoms HEENT: Reports: No Symptoms Respiratory: Reports: Shortness of Breath Cardiovascular: Reports: No Symptoms Endocrine: Reports: No Symptoms GI/Abdominal: Reports: No Symptoms : Reports: No Symptoms Musculoskeletal: Reports: No Symptoms Skin: Reports: No Symptoms Neurological: Reports: No Symptoms Psychiatric: Reports: No Symptoms Hematologic/Lymphatic: Reports: No Symptoms Immunologic: Reports: No Symptoms ED EXAM, GENERAL - Physical Exam Exam: See Below Exam Limited By: No Limitations General Appearance: No Apparent Distress, Lethargic Eye Exam: Bilateral Eye: Normal Inspection Nose: Normal Inspection, No Blood Throat/Mouth: Normal Inspection, Normal Oropharynx, No Airway Compromise Head: Atraumatic, Normocephalic Neck: Normal Inspection Respiratory/Chest: Decreased Breath Sounds, Rales, Other ([place]) GI/Abdominal: Normal Bowel Sounds, Soft, Non-Tender Extremities: Normal Inspection, No Pedal Edema Neurological: Slow to Respond Psychiatric: Flat Affect Skin Exam: Warm, Intact, Normal Color, No Rash, Diaphoretic Lymphatic: No Adenopathy EKG INTERPRETATION EKG Date: 10/01/16 Time: 20:45 Rhythm: NSR Rate (beats/min): 92 [place]: normal P-wave: present QRS: normal ST-T: normal QT: normal Comparison: no change Course - Orders/Labs/Meds Orders: Active Orders 24 hr Category Date Time Status EKG Documentation Completion [RC] ASDIRECTED Care 10/01/16 20:28 Ordered Oxygen Therapy [RC] PRN Care 10/01/16 20:27 Ordered Peripheral IV Care [RC] . DIRECTED Care 10/01/16 20:28 Ordered Pulse Oximetry [RC] CONTINUOUS Care 10/01/16 20:27 Ordered Chest 1V Frontal [CR] Stat Exams 10/01/16 20:27 Ordered ABG [BLOOD GAS ARTERIAL] [BG] Stat Lab 10/01/16 20:28 Ordered CBC WITH AUTO DIFF [HEME] Stat Lab 10/01/16 20:27 Ordered COMPREHENSIVE METABOLIC PN,CMP [CHEM] Stat Lab 10/01/16 20:27 Ordered Sodium Chloride 0.9% [Syrex Flush] Med 10/01/16 20:27 Ordered 5 ml FLUSH Q8HR PRN Peripheral IV Insertion Adult [OM.PC] Urgent Oth 10/01/16 20:27 Ordered EKG 12 Lead [EK] Stat Ther 10/01/16 20:27 Ordered Medication Orders Sodium Chloride (Syrex Flush) 5 ml FLUSH Q8HR PRN PRN Reason: Keep Vein Open Meds: Medications Generic Name Dose Route Start Last Admin Trade Name Freq PRN Reason Stop Dose Admin Sodium Chloride 5 ml 10/01/16 20:27 Syrex Flush FLUSH Q8HR PRN Keep Vein Open - Radiology Interpretation Free Text/Narrative:: CXR LEFT LINGULA INFILTRATE - Re-Assessments/Exams Free Text/Narrative Re-Assessment/Exam: 10/01/16 21:40 PT AFEBRILE, RR 30-35, SAT 95% ON 35% MASK. DISCUSSED CASE WITH DR CERRATO, HOSPITALIST FOR [facility] AND WILL ACCEPT TRANSFER OF CARE. PT WILL BE TRANSPORTED VIA EMS GROUND Departure - Departure Time of Disposition: 21:44 Disposition: DC/Tfer to Acute Hospital 02 Condition: poor Clinical Impression: Respiratory distress Pneumonia Qualifiers: Pneumonia type: due to unspecified organism Laterality: left Lung location: lower lobe of lung Qualified Code(s): J18.1 - Lobar pneumonia, unspecified organism - Discharge Information - My Orders Last 24 Hours: My Active Orders 10/01/16 20:27 Oxygen Therapy [RC] PRN Pulse Oximetry [RC] CONTINUOUS Chest 1V Frontal [CR] Stat CBC WITH AUTO DIFF [HEME] Stat COMPREHENSIVE METABOLIC PN,CMP [CHEM] Stat Sodium Chloride 0.9% [Syrex Flush] 5 ml FLUSH Q8HR PRN Peripheral IV Insertion Adult [OM.PC] Urgent EKG 12 Lead [EK] Stat 10/01/16 20:28 EKG Documentation Completion [RC] ASDIRECTED Peripheral IV Care [RC] . DIRECTED ABG [BLOOD GAS ARTERIAL] [BG] Stat - Assessment/Plan Last 24 Hours: My Active Orders 10/01/16 20:27 Oxygen Therapy [RC] PRN Pulse Oximetry [RC] CONTINUOUS Chest 1V Frontal [CR] Stat CBC WITH AUTO DIFF [HEME] Stat COMPREHENSIVE METABOLIC PN,CMP [CHEM] Stat Sodium Chloride 0.9% [Syrex Flush] 5 ml FLUSH Q8HR PRN Peripheral IV Insertion Adult [OM.PC] Urgent EKG 12 Lead [EK] Stat 10/01/16 20:28 EKG Documentation Completion [RC] ASDIRECTED Peripheral IV Care [RC] . DIRECTED ABG [BLOOD GAS ARTERIAL] [BG] Stat Assessment:: PNEUMONIA / RESPIRATORY DISTRESS Plan: TRANSFER TO [facility]
[2016-10-01 21:11] VITALS: BP 122/70
[2016-10-01 21:14] LABS: BASE EXCESS ARTERIAL 7 mmol/L (-2-3); O2 DELIVERY DEVICE NASAL CANNULA; O2 FLOW RATE 6 L/min; O2 SATURATION ARTERIAL 96 % (95-98); PCO2 ARTERIAL 47 mmHG (35-45); PO2 ARTERIAL 79 mmHG (80-105)
[2016-10-01 21:22] LABS: CHLORIDE,CL 98 mmol/L (98-115); SODIUM,NA 138 mmol/L (136-145)
[2016-10-01] MEDS ORDERED: Albuterol/Ipratropium 3.0-0.5 MG/3 ML Neb Soln NEB ONE ×2 (21:22→21:28)
[2016-10-01] MEDS ORDERED: Albuterol/Ipratropium 3.0-0.5 MG/3 ML Neb Soln ONE (21:24)
[2016-10-01] MEDS ORDERED: Levofloxacin/Dextrose 5%-Water 500 MG in Premix Bag 1 BAG IV ONE (21:36)
[2016-10-01] MEDS ORDERED: Sodium Chloride 0.9% 1,000 ML IV SCH (21:45)
== END 2016-10-01 22:05 ==
LOC: KA.ED 20:19
DX: J18.9 Pneumonia, unspecified organism (principal); F32.9 Major depressive disorder, single episode, unspecified; Z79.899 Other long term (current) drug therapy; Z87.891 Personal history of nicotine dependence
CPT/HCPCS: 36415; 36600; 71010; 80053; 82803; 84484; 85025; 93005; 94640; 96374; 99285; J1956; J7030

== ENCOUNTER 2016-10-10 05:20 | Emergency (ER) | payer MEDICARE, MEDICAID ==
[2016-10-10] MEDS ORDERED: Sodium Chloride 0.9% 1,000 ML IV ONE (05:30)
[2016-10-10] MEDS ORDERED: Sodium Chloride 0.9% 5 ML Syringe FLUSH PRN (05:56)
--- NOTE | 2016-10-10 06:03 | EDM.PDOC ---
ED HPI GENERAL MEDICAL PROBLEM - General Chief Complaint: General Stated Complaint: nose bleed ,coughing up blood Time Seen by Provider: 10/10/16 05:45 Source of Information: Reports: Patient, EMS, [facility] Records - History of Present Illness INITIAL COMMENTS - FREE TEXT/NARRATIVE: 70 YO WM with severe COPD presents to ER with a nosebleed and hypoxia. [facility] at [facility] with blood in his nose and mouth. Pt was also found to have SaO2 in the 80's on 3L NC. Pt denies any abdominal pain, denies vomiting. blood from nares and mouth is bright red blood without any evidence of coffee ground emesis. Onset: Today Onset Date: 10/10/16 Onset Time: 04:30 Duration: Hour(s): (2) Improves with: Reports: None Worsens with: Reports: None Associated Symptoms: Reports: Weakness. Denies: Cough, cough w sputum, Loss of Appetite, Nausea/Vomiting - Related Data Allergies Allergy/AdvReac Type Severity Reaction Status Date / Time tizanidine Allergy Agitation Verified 10/10/16 06:26 Home Meds: Home Meds Albuterol/Ipratropium [DuoNeb 3.0-0.5 MG/3 ML] 1 unit INH Q4H PRN 08/06/13 [ History] Aspirin [Francis Chewable Aspirin] 81 mg GTUBE 0800 08/06/13 [History] Baclofen 20 mg GTUBE 0800,1400,199908/06/13 [History] Cholecalciferol (Vitamin D3) [Vitamin D3] 1,000 unit GTUBE DAILY@0800 08/06/13 [ History] Glycopyrrolate [Robinul] 2 mg GTUBE 0000,0500,1300,1800 08/06/13 [History] Guar Gum [Benefiber] 4 gm GTUBE 0800,1800 08/06/13 [History] Polyethylene Glycol 3350 [MiraLAX] 17 gm GTUBE Q48H 08/06/13 [History] Sertraline [Zoloft] 100 mg GTUBE DAILY@1800 08/06/13 [History] Albuterol/Ipratropium [DuoNeb 3.0-0.5 MG/3 ML] 1 unit INH 0900,1400,1999 [History] traMADol HCl [Ultram] 50 mg GTUBE TID PRN 11/14/14 [History] Sennosides [Senna-Gen] 8.6 mg GTUBE 0800,1800 11/17/14 [History] Lansoprazole 3mg/Ml 30 mg GTUBE 0800,1800 09/11/15 [History] Gabapentin 250 mg PO 0500,1300,2100 05/15/16 [History] Nystatin 1 applic TOP 0900,209905/15/16 [History] Nystatin 1 applic TOP QID PRN 05/15/16 [History] guaiFENesin/Codeine Phosphate [Cheratussin AC Syrup] 5 ml PEGTUBE Q4H PRN [History] traMADol HCl [Tramadol HCl] 50 mg PEGTUBE 0600,1800 PRN 05/15/16 [History] Acetaminophen [Mapap] 500 mg GTUBE 0800,199905/16/16 [History] guaiFENesin [Robitussin] 200 mg PEGTUBE Q4H PRN 05/16/16 [History] Hydrocodone/Acetaminophen [Hydrocodon-Acetaminophen 5-325] 1 each PEGTUBE BEDTIME 09/09/16 [History] Levofloxacin [Levaquin] 500 mg PO Q24H 09/09/16 [History] Metoprolol Tartrate 25 mg PEGTUBE 0900,209909/09/16 [History] Ondansetron [IJP: Ondansetron ODT] 4 mg PEGTUBE .EVERY 6 HOURS 09/09/16 [History ] metroNIDAZOLE [Metronidazole] 250 mg PEGTUBE 0800,1400,199909/09/16 [History] Past Medical History Other HEENT History: Dysphagia Cardiovascular History: Reports: Other (See Below) Other Cardiovascular History: Hemorrhagic stroke 7 yr ago Respiratory History: Reports: Pneumonia, Recurrent Other Respiratory History: intubated and trached for pneumonia 3 yrs ago, H/O MRSA sputum Gastrointestinal History: Reports: Other (See Below) Other Gastrointestinal History: PEG TUBE Musculoskeletal History: Reports: Other (See Below) Other Musculoskeletal History: chronic muscle spasms, left hemiplegia with contractures. Neurological History: Reports: CVA, Other (See Below) Other Neuro History: chronic pain syndrome Psychiatric History: Reports: Depression Oncologic (Cancer) History: Reports: Other (See Below) Other Oncologic History: adrenal adenoma Dermatologic History: Reports: Other (See Below) Other Dermatologic History: scattered red rashy areas - Past Surgical History GI Surgical History: Reports: Other (See Below) Musculoskeletal Surgical History: Reports: Shoulder Surgery, Other (See Below) Social & Family History - Family History Family Medical History: Noncontributory - Tobacco Use Smoking Status *Q: Former Smoker Years of Tobacco use: 19 Packs/Tins Daily: 2 Used Tobacco, but Quit: Yes Month Tobacco Last Used: Unknown Second Hand Smoke Exposure: No - Alcohol Use Days Per Week of Alcohol Use: 0 Number of Drinks Per Day: 5 Total Drinks Per Week: 0 - Recreational Drug Use Recreational Drug Use: No ED ROS GENERAL - Review of Systems Review Of Systems: See Below Constitutional: Reports: No Symptoms HEENT: Reports: Nosebleed Respiratory: Reports: Shortness of Breath, Wheezing Cardiovascular: Reports: No Symptoms Endocrine: Reports: No Symptoms GI/Abdominal: Reports: No Symptoms : Reports: No Symptoms Musculoskeletal: Reports: No Symptoms Skin: Reports: No Symptoms Neurological: Reports: No Symptoms Psychiatric: Reports: No Symptoms Hematologic/Lymphatic: Reports: No Symptoms Immunologic: Reports: No Symptoms ED EXAM, GENERAL - Physical Exam Exam: See Below Exam Limited By: No Limitations General Appearance: Alert, WD/WN Nose: Other (dry blood in right nare and fresh blood without active bleeding in left nare) Throat/Mouth: Normal Inspection, Normal Lips, Normal Teeth, Normal Gums, Normal Oropharynx, Normal Voice, No Airway Compromise, Other (fresh blood in mouth which appears to be from recent nosebleed) Head: Atraumatic, Normocephalic Neck: Normal Inspection, Supple, Non-Tender, Full Range of Motion Respiratory/Chest: No Respiratory Distress, No Accessory Muscle Use, Chest Non- Tender, Crackles, Wheezing Cardiovascular: Normal Peripheral Pulses, Regular Rate, Rhythm, No Edema, No Gallop, No JVD, No Murmur, No Rub GI/Abdominal: Normal Bowel Sounds, Soft, Non-Tender, No Organomegaly, No Distention, No Abnormal Bruit, No Mass Back Exam: Normal Inspection, Full Range of Motion, NT Extremities: Normal Inspection, Normal Range of Motion, Non-Tender, Normal Capillary Refill, No Pedal Edema Neurological: Alert, Oriented, Slow to Respond Psychiatric: Depressed Mood, Flat Affect Skin Exam: Warm, Dry, Intact, Normal Color, No Rash EKG INTERPRETATION EKG Date: 10/10/16 Time: 06:10 Rate (beats/min): 116 [place]: normal P-wave: present QRS: normal ST-T: normal QT: normal Comparison: NA - no prior EKG Course - Vital Signs Last Recorded V/S: Last Vital Signs Temp 37.9 C 10/10/16 06:28 Pulse 118 H 10/10/16 06:28 Resp 42 H 10/10/16 06:28 BP Pulse Ox 95 10/10/16 06:28 - Orders/Labs/Meds Orders: Active Orders 24 hr Category Date Time Status EKG Documentation Completion [RC] ASDIRECTED Care 10/10/16 05:56 Active Peripheral IV Care [RC] . DIRECTED Care 10/10/16 05:56 Active RT Aerosol Therapy [RC] ASDIRECTED Care 10/10/16 06:11 Active Chest 1V Frontal [CR] Stat Exams 10/10/16 05:56 Taken CULTURE BLOOD [BC] Stat Lab 10/10/16 06:39 Ordered CULTURE BLOOD [BC] Stat Lab 10/10/16 06:39 Ordered Levofloxacin/Dextrose 5%-Water [Levaquin in D5W 500 MG/ Med 10/10/16 06:49 Active 100 ML] 500 mg Premix Bag 1 bag IV ONETIME Sodium Chloride 0.9% [Syrex Flush] Med 10/10/16 05:56 Active 5 ml FLUSH Q8HR PRN Vancomycin 1 gm Med 10/10/16 06:49 Active Sodium Chloride 0.9% [Normal Saline] 250 ml IV ONETIME Blood Culture x2 Reflex Set [OM.PC] Stat Oth 10/10/16 06:39 Ordered Peripheral IV Insertion Adult [OM.PC] Routine Oth 10/10/16 05:56 Ordered EKG 12 Lead [EK] Routine Ther 10/10/16 05:56 Ordered Medication Orders Levofloxacin/Dextrose 500 mg/ (Premix) 100 mls @ 100 mls/hr IV ONETIME ONE Stop: 10/10/16 07:48 Vancomycin HCl 1 gm/ Sodium (Chloride) 250 mls @ 167 mls/hr IV ONETIME ONE Stop: 10/10/16 08:18 Sodium Chloride (Syrex Flush) 5 ml FLUSH Q8HR PRN PRN Reason: Keep Vein Open Labs: Laboratory Tests 10/10/16 10/10/1617 Range/Units 05:43 05:43 05:43 WBC 17.1 H (5.0-10.0) 10^3/uL RBC 4.06 L (4.50-6.00) 10^6/uL Hgb 12.4 L (13.0-17.0) g/dL Hct 36.6 L (40.0-52.0) % MCV 90.1 (82.0-92.0) fL MCH 30.5 (27.0-31.0) pg MCHC 33.9 (32.0-36.0) g/dL RDW 14.9 H (11.5-14.5) % Plt Count 284 (150-300) 10^3/uL MPV 10.2 (7.4-10.4) fL Neut % (Auto) 79.2 H (50.0-70.0) % Lymph % (Auto) 13.0 L (20.0-40.0) % Pender % (Auto) 7.5 (2.0-8.0) % Eos % (Auto) 0.2 L (1.0-3.0) % Baso % (Auto) 0.1 (0.0-1.0) % Neut # (Auto) 13.6 H (2.5-7.0) 10^3/uL Lymph # (Auto) 2.2 (1.0-4.0) 10^3/uL Pender # (Auto) 1.3 H (0.1-0.8) 10^3/uL Eos # (Auto) 0.0 L (0.1-0.3) 10^3/uL Baso # (Auto) 0.0 (0.0-0.1) 10^3/uL PT 10.3 (8.9-11.4) SEC INR 1.0 (0.9-1.1) APTT 20.7 L (20.8-31.2) SEC Sodium 142 (136-145) mmol/L Potassium 3.9 (3.3-5.3) mmol/L Chloride 104 (98-115) mmol/L Carbon Dioxide 28.9 (21.0-32.0) mmol/L BUN 21 (6-25) mg/dL Creatinine 0.67 (0.51-1.17) mg/dL Est Cr Clr Drug Dosing TNP Estimated GFR (MDRD) > 60 mL/min Glucose 150 H (70-110) mg/dL Calcium 9.3 (8.7-10.3) mg/dL Total Bilirubin 0.5 (0.2-1.0) mg/dL AST 32 (15-37) U/L ALT 46 (12-78) U/L Alkaline Phosphatase 102 (46-116) IU/L Creatine Kinase 40 (26-276) U/L CK-MB (CK-2) 0.50 (0.00-4.30) ng/mL Troponin I < 0.04 (0.00-0.070) ng/mL Total Protein 8.8 H (6.4-8.2) g/dL Albumin 3.35 (3.00-4.80) g/dL Meds: Medications Generic Name Dose Route Start Last Admin Trade Name Freq PRN Reason Stop Dose Admin Levofloxacin/Dextrose 500 mg/ 100 mls @ 100 mls/hr 10/10/16 06:49 Premix IV 10/10/16 07:48 ONETIME ONE Vancomycin HCl 1 gm/ Sodium 250 mls @ 167 mls/hr 10/10/16 06:49 Chloride IV 10/10/16 08:18 ONETIME ONE Sodium Chloride 5 ml 10/10/16 05:56 Syrex Flush FLUSH Q8HR PRN Keep Vein Open Discontinued Medications Generic Name Dose Route Start Last Admin Trade Name Freq PRN Reason Stop Dose Admin Acetaminophen 975 mg 10/10/16 06:41 Tylenol RECTAL 10/10/16 06:42 NOW ONE Albuterol/Ipratropium 3 ml 10/10/16 06:10 Duoneb 3.0-0.5 Mg/3 Ml NEB 10/10/16 06:11 ONETIME ONE Albuterol/Ipratropium Confirm 10/10/16 06:11 Duoneb 3.0-0.5 Mg/3 Ml Administered 10/10/16 06:12 Dose 3 ml .ROUTE .STK-MED ONE Hydromorphone HCl 1 mg 10/10/16 06:48 Dilaudid IVPUSH 10/10/16 06:49 ONETIME ONE Hydromorphone HCl Confirm 10/10/16 06:46 Dilaudid Administered 10/10/16 06:47 Dose 1 mg .ROUTE .STK-MED ONE Ondansetron HCl 4 mg 10/10/16 06:48 Zofran IVPUSH 10/10/16 06:49 ONETIME ONE Ondansetron HCl Confirm 10/10/16 06:46 Zofran Administered 10/10/16 06:47 Dose 4 mg .ROUTE .STK-MED ONE - Radiology Interpretation Free Text/Narrative:: CXR- RLL infiltrate Departure - Departure Time of Disposition: 07:13 Disposition: DC/Tfer to [facility] 02 Condition: critical Clinical Impression: Hypoxemia, Nosebleed Pneumonia Qualifiers: Pneumonia type: due to unspecified organism Laterality: right Lung location: lower lobe of lung Qualified Code(s): J18.1 - Lobar pneumonia, unspecified organism - Discharge Information Referrals: Joseline Stanford MD [Primary Care Provider] - Forms: ED Department Discharge, Interfacility Transfer [facility] - My Orders Last 24 Hours: My Active Orders 10/10/16 05:56 EKG Documentation Completion [RC] ASDIRECTED Peripheral IV Care [RC] . DIRECTED Chest 1V Frontal [CR] Stat Sodium Chloride 0.9% [Syrex Flush] 5 ml FLUSH Q8HR PRN Peripheral IV Insertion Adult [OM.PC] Routine EKG 12 Lead [EK] Routine 10/10/16 06:11 RT Aerosol Therapy [RC] ASDIRECTED 10/10/16 06:39 CULTURE BLOOD [BC] Stat CULTURE BLOOD [BC] Stat Blood Culture x2 Reflex Set [OM.PC] Stat 10/10/16 06:49 Levofloxacin/Dextrose 5%-Water [Levaquin in D5W 500 MG/100 ML] 500 mg Premix Bag 1 bag IV ONETIME Vancomycin 1 gm Sodium Chloride 0.9% [Normal Saline] 250 ml IV ONETIME - Assessment/Plan Last 24 Hours: My Active Orders 10/10/16 05:56 EKG Documentation Completion [RC] ASDIRECTED Peripheral IV Care [RC] . DIRECTED Chest 1V Frontal [CR] Stat Sodium Chloride 0.9% [Syrex Flush] 5 ml FLUSH Q8HR PRN Peripheral IV Insertion Adult [OM.PC] Routine EKG 12 Lead [EK] Routine 10/10/16 06:11 RT Aerosol Therapy [RC] ASDIRECTED 10/10/16 06:39 CULTURE BLOOD [BC] Stat CULTURE BLOOD [BC] Stat Blood Culture x2 Reflex Set [OM.PC] Stat 10/10/16 06:49 Levofloxacin/Dextrose 5%-Water [Levaquin in D5W 500 MG/100 ML] 500 mg Premix Bag 1 bag IV ONETIME Vancomycin 1 gm Sodium Chloride 0.9% [Normal Saline] 250 ml IV ONETIME Assessment:: 1. Hypoxia 2. active nosebleed on left nare 3. COPD exacerbation 4. RLL Pneumonia Plan: 1. Transfer to [facility] 2. Vancomycin 1g iv Levaquin 500mg iv 3. nonrebreather at 100% 4. ns 1L bolus
[2016-10-10] MEDS ORDERED: Albuterol/Ipratropium 3.0-0.5 MG/3 ML Neb Soln NEB ONE (06:10)
[2016-10-10] MEDS ORDERED: Albuterol/Ipratropium 3.0-0.5 MG/3 ML Neb Soln ONE (06:11)
[2016-10-10] MEDS ORDERED: Acetaminophen 650 MG Supp RECTAL ONE (06:41)
[2016-10-10] MEDS ORDERED: Ondansetron 4 MG/2 ML SDV ONE (06:46)
[2016-10-10] MEDS ORDERED: HYDROmorphone 1 MG/ML Syringe ONE (06:46)
[2016-10-10] MEDS ORDERED: Ondansetron 4 MG/2 ML SDV IVPUSH ONE (06:48)
[2016-10-10] MEDS ORDERED: HYDROmorphone 1 MG/ML Syringe IVPUSH ONE (06:48)
[2016-10-10 06:49] LABS: CHLORIDE,CL 104 mmol/L (98-115); SODIUM,NA 142 mmol/L (136-145)
[2016-10-10] MEDS ORDERED: Levofloxacin/Dextrose 5%-Water 500 MG in Premix Bag 1 BAG IV ONE (06:49)
[2016-10-10] MEDS ORDERED: methylPREDNISolone Sodium Succinate 500 MG/4 ML SDV IVPUSH ONE (07:24)
[2016-10-10] MEDS ORDERED: methylPREDNISolone Sodium Succinate 125 MG/2 ML SDV ONE (07:25)
[2016-10-10] MEDS ORDERED: Sodium Chloride 0.9% 1,000 ML ONE (08:38)
== END 2016-10-10 07:50 | disposition home or self-care (01) ==
LOC: KA.ED 05:20
DX: J18.9 Pneumonia, unspecified organism (principal); R04.0 Epistaxis; F32.9 Major depressive disorder, single episode, unspecified; Z88.8 Allergy status to other drugs, medicaments and biological substances; Z79.82 Long term (current) use of aspirin; Z79.899 Other long term (current) drug therapy; Z87.01 Personal history of pneumonia (recurrent); Z87.891 Personal history of nicotine dependence
CPT/HCPCS: 36415; 71010; 80053; 82550; 82553; 84484; 85025; 85610; 85730; 93005; 94640; 96361; 96365; 96368; 96375; 99285; A9270; J1170; J1956; J2405; J2930; J3370; J7030; J7050; 87040